=== PATIENT | female | born 1940 | race Caucasian/White ===

== ENCOUNTER 2021-12-16 10:06 | Emergency (ER) | payer MEDICARE, BC, SELFPAY ==
--- NOTE | ~2021-12-16 | XR_ITS ---
EXAMINATION: XR foot LT min 3V DATE: 12/16/2021 10:33 INDICATION: Left heel pain. TECHNIQUE: 4 views of left foot were obtained. COMPARISON: None. FINDINGS: Bone alignment is normal. No fracture. There is mild osteoarthritis of first metatarsophala ngeal joint and some of the interphalangeal joints and talonavicular joint. There are enthesophytes a t the posterior and plantar aspects of calcaneal tuberosity. IMPRESSION: 1. Mild polyarticular osteoarthritis. Reviewed, dictated and finalized at location A.
[2021-12-16 10:17] VITALS: BP 139/70; PULSE 78; RESP 16; TEMP 36.2; O2SAT 98
--- NOTE | 2021-12-16 10:18 | ED.LOWEXIN ---
HPI - Extremity Injury (Lower) General Chief Complaint: Extremity Problem,Nontraumatic Stated Complaint: L foot pain Time Seen by Provider: 12/16/21 10:18 Source: patient Mode of arrival: ambulatory History of Present Illness HPI Narrative: 81-year-old female with a history of hypertension, dyslipidemia, pulmonary embolism on Eliquis presents to the ER with a 1 day history of -- left foot pain worse on weight-bearing. The pain is located in region of the heel. Onset (ago): day(s) ( 1 day ago) Injury: Left: foot Type of Injury: unknown Severity: moderate Relieving factors: nothing Exacerbating factors: nothing Other symptoms: none Related Data Home Medications Medication Instructions Recorded Confirmed apixaban 5 mg tablet (Eliquis) 5 mg PO BID 12/16/21 12/16/21 atorvastatin 10 mg tablet 10 mg PO DAILY 12/16/21 12/16/21 losartan 100 1 tablet PO DAILY 12/16/21 12/16/21 mg-hydrochlorothiazide 12.5 mg tablet Allergies Allergy/AdvReac Type Severity Reaction Status Date / Time No Known Allergies Allergy Verified 12/16/21 10:26 Review of Systems Review of Systems: All systems reviewed & are unremarkable except as noted in HPI and below Constitutional: Constitutional: Reports as per HPI and Reports no additional constitutional complaints Eyes: Eyes: Reports as per HPI and Reports no additional eye complaints ENT: Reports system reviewed and no additional complaints, except as documented and Reports as per HPI Cardiovascular: Cardiovascular: Reports as per HPI and Reports no additional cardiovascular complaints Respiratory: Respiratory: Reports as per HPI and Reports no additional respiratory complaints Gastrointestinal: Gastrointestinal: Reports as per HPI and Reports no additional gastrointestinal complaints Genitourinary: Genitourinary: Reports no additional female genitourinary complaints and Reports as per HPI Musculoskeletal: Musculoskeletal: Reports no additional musculoskeletal complaints and Reports as per HPI Comments: left foot pain Integumentary/Breasts: Skin/Breast: Reports system reviewed and no additional complaints, except as docu Neurologic: Reports system reviewed and no additional complaints, except as documented and Reports as per HPI Psychiatric: Psychiatric: Reports no additional psychiatric complaints and Reports as per HPI Endocrine: Endocrine: Reports no additional endocrine complaints and Reports as per HPI Hematologic/Lymphatic: Hematologic/Lymphatic: Reports no additional hematologic/lymphatic complaints and Reports as per HPI Allergic/Immunologic: Allergic/Immunologic: Reports no additional allergic/immunologic complaints and Reports as per [facility] Past Medical History Medical History (Updated 12/16/21 @ 11:08 by Michael Rodriguez MD) Dyslipidemia Hypertension Pulmonary embolism Exam Const: General: healthy appearing and no acute distress Limitations: no limitations HENMT: Head: normal to inspection Ears: external ears normal General nose exam: Normal external nose present Face and sinus: normal facial exam Mouth: Yes Normal oral and palatal mucosa present Throat: posterior oropharynx normal Eyes: Conjunctivae: conjunctivae normal Pupils: Equal, round and reactive pupils present EOM: EOMs intact bilaterally Direct Ophthalmoscopy: no photophobia Neck: Neck: normal visual inspection, no lymphadenopathy and no meningeal signs Chest: Chest palpation & inspection: normal inspection of the chest Resp: Effort & Inspection: normal respiratory effort Auscultation: clear to auscultation bilaterally Cardio: Rate: regular rate Rhythm: regular rhythm GI: GI Palp: Yes Soft to palpation Auscultation: normal bowel sounds Other: tenderness/ rigidity /rebound : General: Yes no CVA tenderness Back/Spine/Pelvis: Back: no CVA tenderness Skin: General skin exam: normal color Rashes: no rashes Wounds: no wounds Neuro: General: patient oriented x3, m
[2021-12-16 11:15] VITALS: BP 127/63; PULSE 69; RESP 16; TEMP 36.5; O2SAT 100
== END 2021-12-16 11:17 | disposition home or self-care (01) ==
PROVIDERS: Emergency Provider Internal Medicine Critical Care Medicine; PCP Family Medicine
DX: M72.2 Plantar fascial fibromatosis (principal); M13.872 Other specified arthritis, left ankle and foot
CPT/HCPCS: 73630; 99283

== ENCOUNTER 2024-05-05 12:22 | Outpatient (CLI) | payer MEDICARE, BC, SELFPAY ==
--- OUTSIDE RECORDS SUMMARY | 2024-05-05 12:30 | XMS_ITS | Clinical Summary ---
Author Organization [facility] Address [address] [place] [address]. 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 Indications : Acute Pain < 7 Day Supply 28 tablet 12/08/2020 Active apixaban 5 MG tablet Take 1 tablet (5 mg total) by mouth 2 (two) times daily. 60 tablet 12/15/2020 Active Active Problems Problem Noted Date Diagnosed Date Bilateral pulmonary embolism ([facility]) 0 12/07/2020 Diabetes mellitus ([facility]) Hypertension Hypercholesteremia Immunizations Name Administration Dates Next Due Influenza Adult (Generic) 01/24/2021,01/18/2020 Family History Medical History Relation Comments Heart Disease Brother Breast Cancer Daughter Cancer Father Cancer Mother Heart Disease Mother Heart Disease Sister Hypertension Son Relation Status Comments Brother Daughter Father Mother Sister Son Social History Tobacco Use Types Packs/Day Years Used Date Smoking Tobacco: Never Smokeless Tobacco: Never Alcohol Use Standard Drinks/Week Comments Never 0 (1 standard drink = 0.6 oz pur e alcohol) PHQ-2 Answer Date Recorded PHQ-2 Score - If the patient scores above 3, please move on to questions 3-9 0 07/24/2021 Comments No Sex and Gender Information Value Date Recorded Sex Assigned at Not on file Legal Sex Female 5:57 PM [employer] Gender Identity Not on file Sexual Orientation Not on file Last Filed Vital Signs Vital Sign Reading Time Taken Comments Blood Pressure 111/42 12/08/2020 11:00 AM CDT Pulse 77 12/08/2020 11:00 AM CDT Temperature 36.6 ??C (97.8 ??F) 12/08/2020 1 1:00 AM CDT Respiratory Rate 18 12/08/2020 11:0 0 AM CDT Oxygen Saturation 93% 12/08/2020 6:06 AM CDT Inhaled Oxygen Concentration - - Weight 74.8 kg (164 lb 14.4 oz) 12/08/2020 6:06 AM CDT Height 170.2 cm (5' 7 ) 12/07/2020 5:00 PM CDT Body Mass Index 25.83 12/07/2020 5:00 PM CDT Plan of Treatment Health Maintenance Due Date Last Done Comments Kidney Health Evaluation 1940 Hemoglobin A1C 1940 Lipid Panel 1940 Pneumococcal Vaccine: 65+ Years (1 of 2 - PCV) 1945 Diabetes: Retinopathy Eye Exam 1957 DTaP, Tdap and Td Vaccines (1 - Tdap) 1958 Annual Medicare Wellness Visit 01/17/2004 Zoster Vaccines (2 of 3) 08/21/2012 06/26/2012 RSV Immunization or 60+ Years (1 - 1-dose 75+ series) 2014 COVID-19 Vaccine ( - season) 2023 Influenza Adult (#1) 2023 01/24/2021, 01/18/2020, 01/14/2019, Additional history exists Meningococcal B Vaccine Aged Out No l onger eligible based on patient's age to complete this topic Meningococcal Vaccine Aged Out No preet katie eligible based on patient's age to complete this topic RSV Immunizations Under 20 Months Aged Out No longer eligible based on patient's age to complete this topic Insurance MEDICARE [facility] Advance Directives * Full Code (Latest Code Status on File) Date Activated Date Inactivated Comments 12/07/2020 5:16 PM 12/08/2020 3:12 PM Care 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
== END 2024-05-05 12:23 | disposition home or self-care (01) ==
PROVIDERS: PCP Family Medicine; Visit Provider Specialist
DX: C44.41 Basal cell carcinoma of skin of scalp and neck (principal)
CPT/HCPCS: 88305